=== PATIENT | female | born 1965 | race African-American/Black ===

== ENCOUNTER 2018-05-18 01:07 | Emergency (ER) | payer MEDICAID ==
[~2018-05-18] VITALS: Ht 157.5 cm; Wt 73.0 kg
[2018-05-18] MEDS ORDERED: TRAMADOL 50MG TABLET PO ONE (07:00)
[2018-05-18 11:54] VITALS: BP 133/74
== END 2018-05-18 13:50 | disposition home or self-care (01) ==
LOC: ER 01:07
DX: H10.9 Unspecified conjunctivitis (principal); M79.661 Pain in right lower leg; F43.10 Post-traumatic stress disorder, unspecified; F17.200 Nicotine dependence, unspecified, uncomplicated; W01.0XXD Fall on same level from slipping, tripping and stumbling without subsequent striking against object, subsequent encounter; Z88.6 Allergy status to analgesic agent
CPT/HCPCS: 73590; 93970; 99283

== ENCOUNTER 2019-12-05 22:02 | Emergency (ER) | payer MEDICAID ==
[~2019-12-05] VITALS: Ht 170.2 cm; Wt 72.0 kg
[2019-12-06] MEDS ORDERED: ACETAMINOPHEN 325MG TABLET PO ONE ×2 (01:15→14:00)
[2019-12-06 02:13] LABS: CLARITY URINE CLEAR (CLEAR); COLOR URINE YELLOW (YELLOW); KETONES URINE NEGATIVE (NEGATIVE); LEUKOCYTE ESTERASE URINE TRACE (NEGATIVE); NITRITE URINE NEGATIVE (NEGATIVE); OCCULT BLOOD URINE 1+ (NEGATIVE); PH URINE 6.5 (4.5-8.0); PROTEIN URINE NEGATIVE (NEGATIVE)
[2019-12-06] MEDS ORDERED: HYDROCODONE/ACETAMINOPHEN 5/325MG TABLET PO ONE (02:15)
[2019-12-06 02:22] LABS: *AMPHETAMINES SCREEN URINE NEGATIVE (NEGATIVE); *BARBITURATES SCREEN URINE NEGATIVE (NEGATIVE); *BENZODIAZEPINES SCREEN URINE NEGATIVE (NEGATIVE)
[2019-12-06 02:23] LABS: *COCAINE SCREEN URINE PRESUMTIVE POSITIVE (NEGATIVE); CANNABINOID URINE SCREEN PRESUMTIVE POSITIVE (NEGATIVE); METHADONE URINE SCREEN NEGATIVE (NEGATIVE); OPIATES URINE SCREEN NEGATIVE (NEGATIVE); PHENCYCLIDINE URINE SCREEN PRESUMTIVE POSITIVE (NEGATIVE)
[2019-12-06 02:56] LABS: BASOPHILS % 0.9 % (0.0-2.0); EOSINOPHILS % 3.2 % (0.0-5.0); HEMATOCRIT. 38.3 % (36.0-48.0); MEAN CORPUSCULAR HEMOGLOBIN 32.5 pg (28.0-32.0); MEAN PLATELET VOLUME 8.1 fl (7.4-10.4); MONOCYTES % 9.4 % (2.0-8.0); NEUTROPHILS % 53.5 % (40.0-76.0); PLATELET 274 x1000/uL (130-400); RED BLOOD CELL COUNT 3.99 mill/uL (4.2-5.4); RED CELL DISTRIBUTION WIDTH 13.3 % (11.6-14.6)
[2019-12-06 03:00] LABS: CHLORIDE 113 mEq/L (98-107)
[2019-12-06 03:05] LABS: ETHANOL BLOOD < 10 mg/dL
[2019-12-06] MEDS ORDERED: NITROFURANTOIN 100MG M/M CAPSULE PO SCH (09:00)
[2019-12-06] MEDS: ACETAMINOPHEN 325MG TABLET PO ONE ×2 (10:11→14:00)
[2019-12-06 18:37] VITALS: BP 126/68
== END 2019-12-06 18:40 | disposition home or self-care (01) ==
LOC: ER 22:02
DX: R45.851 Suicidal ideations (principal); S90.01XA Contusion of right ankle, initial encounter; N39.0 Urinary tract infection, site not specified; F20.9 Schizophrenia, unspecified; F32.9 Major depressive disorder, single episode, unspecified; F43.10 Post-traumatic stress disorder, unspecified; W01.0XXA Fall on same level from slipping, tripping and stumbling without subsequent striking against object, initial encounter; Y93.9 Activity, unspecified; Y92.9 Unspecified place or not applicable; Z88.6 Allergy status to analgesic agent
CPT/HCPCS: 36415; 73590; 73610; 80053; 80305; 80307; 80320; 80329; 81003; 85025; 93005; 99285; G0480

== ENCOUNTER 2024-01-18 20:49 | Emergency (ER) | payer MEDICAID ==
[~2024-01-18] VITALS: Ht 172.7 cm; Wt 62.0 kg
[2024-01-18 20:56] VITALS: TEMP 99; O2SAT 95
[2024-01-18] MEDS: ACETAMINOPHEN 1000MG/100ML 100 ML IV ONE (23:00)
[2024-01-18 23:20] LABS: BASOPHILS % 0.8 % (0.0-2.0); EOSINOPHILS % 1.8 % (0.0-5.0); HEMATOCRIT. 37.8 % (36.0-48.0); HEMOGLOBIN. 12.3 g/dL (12.0-16.0); LYMPHOCYTES % 33.5 % (20.0-50.0); MEAN CORPUSCULAR HEMOGLOBIN 31.3 pg (28.0-32.0); MEAN CORPUSCULAR HGB CONC 32.5 g/dL (31.0-37.0); MEAN CORPUSCULAR VOLUME 96.3 fL (81.0-99.0); MEAN PLATELET VOLUME 8.7 fl (7.4-10.4); MONOCYTES % 7.8 % (2.0-8.0); NEUTROPHILS % 56.1 % (40.0-76.0); PLATELET 238 x1000/uL (130-400); RED BLOOD CELL COUNT 3.93 mill/uL (4.2-5.4); RED CELL DISTRIBUTION WIDTH 13.6 % (11.6-14.6); WHITE BLOOD COUNT 11.3 x1000/uL (4.5-11.0)
[2024-01-18 23:23] LABS: CHLORIDE 114 mEq/L (98-107); POTASSIUM 3.3 mEq/L (3.5-5.1); SODIUM 144 mEq/L (136-145)
[2024-01-18 23:24] LABS: CALCIUM 10.9 mg/dL (8.7-10.4); CARBON DIOXIDE 26 mEq/L (21-32)
[2024-01-18 23:29] LABS: CREATININE 0.8 mg/dL (0.6-1.0); GLUCOSE 105 mg/dL (70-105); UREA NITROGEN BLOOD 14 mg/dL (9-23)
[2024-01-18 23:31] LABS: ALANINE AMINOTRANSFERASE 8 IU/L (10-49); ALBUMIN 3.7 g/dL (3.2-4.8); ASPARTATE AMINOTRANSFERASE 16 IU/L (<34); BILIRUBIN TOTAL 0.2 mg/dL (0.1-1.0); PROTEIN TOTAL 6.4 g/dL (6.0-8.3)
[2024-01-18 23:32] LABS: INR 0.9; PROTHROMBIN TIME 10.3 sec (9.6-11.0)
[2024-01-18 23:44] LABS: BILIRUBIN DIRECT < 0.1 mg/dL (<=3.0); ETHANOL BLOOD < 10 mg/dL (<10)
[2024-01-19 02:18] LABS: CLARITY URINE CLOUDY (CLEAR); COLOR URINE YELLOW (YELLOW); GLUCOSE URINE NEGATIVE (NEGATIVE); KETONES URINE NEGATIVE (NEGATIVE); LEUKOCYTE ESTERASE URINE NEGATIVE (NEGATIVE); NITRITE URINE NEGATIVE (NEGATIVE); OCCULT BLOOD URINE TRACE (NEGATIVE); PROTEIN URINE NEGATIVE (NEGATIVE); SPECIFIC GRAVITY URINE 1.013 (1.005-1.030)
[2024-01-19 02:33] LABS: *AMPHETAMINES SCREEN URINE NEGATIVE (NEGATIVE); *BARBITURATES SCREEN URINE NEGATIVE (NEGATIVE); *BENZODIAZEPINES SCREEN URINE NEGATIVE (NEGATIVE); *COCAINE SCREEN URINE PRESUMPTIVE POSITIVE (NEGATIVE); CANNABINOID URINE SCREEN NEGATIVE (NEGATIVE); ECSTASY MDMA SCREEN URINE NEGATIVE (NEGATIVE); METHADONE URINE SCREEN NEGATIVE (NEGATIVE); OPIATES URINE SCREEN NEGATIVE (NEGATIVE); PHENCYCLIDINE URINE SCREEN PRESUMTIVE POSITIVE (NEGATIVE)
[2024-01-19] MEDS ORDERED: ONDA4TAB50 MT (04:10)
[2024-01-19] MEDS ORDERED: ACET-2708 MT (04:10)
[2024-01-19] MEDS ORDERED: IMOD MT (04:10)
[2024-01-19 05:04] VITALS: BP 148/96; PULSE 88; RESP 18; O2SAT 100
[2024-01-19 05:19] LABS: SQUAMOUS EPITHELIAL CELL URINE FEW /lpf (RARE/1+)
[2024-01-19 05:20] LABS: RBC URINE 0-2 /hpf (0-2); WBC URINE 0-2 /hpf (0-2)
[2024-01-19 05:23] LABS: BACTERIA URINE NONE SEEN; CALCIUM OXALATE CRYSTALS URINE 1+ /lpf
[2024-01-19] MEDS ORDERED: IOHEXOL-300 100 ML BOTTLE ONE (12:23)
== END 2024-01-19 05:13 | disposition home or self-care (01) ==
LOC: ER 20:49
DX: R19.7 Diarrhea, unspecified (principal); I10 Essential (primary) hypertension; F12.10 Cannabis abuse, uncomplicated; J44.9 Chronic obstructive pulmonary disease, unspecified; Z88.6 Allergy status to analgesic agent; Z86.59 Personal history of other mental and behavioral disorders; Z98.890 Other specified postprocedural states; Z00.00 Encounter for general adult medical examination without abnormal findings
CPT/HCPCS: 80076; 80048; 80320; 83605; 83690; 85025; 85610; 36415; 96365; 99285; 80305; 81003; 74177; Q9967; G0480; J0131

== ENCOUNTER 2025-02-03 18:01 | Inpatient (IN) | payer MEDICAID ==
[~2025-02-03] VITALS: Ht 157.5 cm; Wt 71.2 kg
[~2025-02-03 18:01] MED LIST: ACET-2708 MT; IMOD MT; ONDA4TAB50 MT
[2025-02-03] MEDS: ONDANSETRON HCL 4MG/2ML INJ IV ONE (18:58)
[2025-02-03] MEDS: MORPHINE SULFATE 4 MG/ML INJ (FOR IV/IM USE) IV ONE ×2 (18:59→23:40)
[2025-02-03] MEDS: SODIUM CHLORIDE 0.9% 1,000 ML IV ONE (18:59)
[2025-02-03 20:08] LABS: BASOPHILS % 0.7 % (0.0-2.0); EOSINOPHILS % 2.4 % (0.0-5.0); HEMATOCRIT. 35.8 % (36.0-48.0); HEMOGLOBIN. 11.6 g/dL (12.0-16.0); LYMPHOCYTES % 32.7 % (20.0-50.0); MEAN PLATELET VOLUME 9.1 fl (7.4-10.4); MONOCYTES % 8.2 % (2.0-8.0); NEUTROPHILS % 56.0 % (40.0-76.0); PLATELET 240 x1000/uL (130-400); RED BLOOD CELL COUNT 3.77 mill/uL (4.2-5.4); RED CELL DISTRIBUTION WIDTH 13.9 % (11.6-14.6)
[2025-02-03 20:25] LABS: CREATININE 1.1 mg/dL (0.6-1.0); ETHANOL BLOOD < 10 mg/dL (<10); UREA NITROGEN BLOOD 16 mg/dL (9-23)
[2025-02-03 20:26] LABS: PROTEIN TOTAL 6.5 g/dL (6.0-8.3)
[2025-02-03 20:27] LABS: ASPARTATE AMINOTRANSFERASE 16 IU/L (<34); BILIRUBIN DIRECT < 0.1 mg/dL (<=3.0); BILIRUBIN TOTAL 0.2 mg/dL (0.1-1.0)
[2025-02-03] MEDS ORDERED: MAGNESIUM 1 G PREMIX 100 ML IV ONE (21:15)
[2025-02-03] MEDS: FAMOTIDINE 20MG TABLET PO ONE (23:05)
[2025-02-03] MEDS: MAGNESIUM 1 G PREMIX 100 ML IV NR (23:06)
[2025-02-03] MEDS: MAGNESIUM/ALUMINUM HYDROXIDE/SIMETHICONE 30ML UDC PO ONE (23:06)
[2025-02-04 06:25] LABS: INFLUENZA TYPE A Presumptive Negative (Pres. Neg.); INFLUENZA TYPE B Presumptive Negative (Pres. Neg.)
[2025-02-04 06:26] LABS: RESPIRATORY SYNCYTIAL VIRUS Not Detected (Not Detectd)
[2025-02-04 08:00] VITALS: BP 122/86; PULSE 78; RESP 18; TEMP 36.5; TEMP 36.5292; O2SAT 99
[2025-02-04] MEDS: HYDROCODONE/ACETAMINOPHEN 5/325MG TABLET PO PRN (09:36)
[2025-02-04] MEDS: PANTOPRAZOLE 40MG DR TABLET PO SCH (09:36)
[2025-02-04] MEDS: ONDANSETRON HCL 4MG/2ML INJ IV PRN (09:36)
[2025-02-04 12:15] VITALS: BP 143/90; PULSE 84; RESP 18; TEMP 36.8; O2SAT 98
[2025-02-04 16:00] VITALS: BP 99/64; PULSE 76; RESP 18; TEMP 36.3; O2SAT 98
[2025-02-04 18:45] LABS: CLARITY URINE CLEAR (CLEAR); COLOR URINE YELLOW (YELLOW); GLUCOSE URINE NEGATIVE (NEGATIVE); KETONES URINE NEGATIVE (NEGATIVE); LEUKOCYTE ESTERASE URINE NEGATIVE (NEGATIVE); NITRITE URINE NEGATIVE (NEGATIVE); OCCULT BLOOD URINE TRACE (NEGATIVE); PH URINE 6.0 (4.5-8.0); PROTEIN URINE NEGATIVE (NEGATIVE); SPECIFIC GRAVITY URINE 1.010 (1.005-1.030); UROBILINOGEN URINE 0.2 E.U./dL (0.2-1.0)
[2025-02-04 18:55] LABS: *AMPHETAMINES SCREEN URINE NEGATIVE (NEGATIVE)
[2025-02-04 18:56] LABS: *BARBITURATES SCREEN URINE NEGATIVE (NEGATIVE); *BENZODIAZEPINES SCREEN URINE NEGATIVE (NEGATIVE); *COCAINE SCREEN URINE NEGATIVE (NEGATIVE); CANNABINOID URINE SCREEN NEGATIVE (NEGATIVE); ECSTASY MDMA SCREEN URINE NEGATIVE (NEGATIVE); METHADONE URINE SCREEN NEGATIVE (NEGATIVE); OPIATES URINE SCREEN PRESUMPTIVE POSITIVE (NEGATIVE); PHENCYCLIDINE URINE SCREEN PRESUMTIVE POSITIVE (NEGATIVE)
[2025-02-04 19:36] LABS: BACTERIA URINE TRACE; RBC URINE NONE SEEN /hpf (0-2); SQUAMOUS EPITHELIAL CELL URINE FEW /lpf (RARE/1+); WBC URINE 0-2 /hpf (0-2)
[2025-02-04 20:00] VITALS: BP 130/80; PULSE 94; RESP 18; TEMP 36.6; O2SAT 97
[2025-02-04 21:20] VITALS: PULSE 72; RESP 17; O2SAT 97
[2025-02-04] MEDS: IPRATROPIUM/ALBUTEROL 0.5-3(2.5)MG/3ML NEB HHN SCH (22:04)
[2025-02-05] VITALS (8 sets, daily range): BP systolic 96–133; BP diastolic 61–79; PULSE 74–102; RESP 16–20; TEMP 36.2–37.4; O2SAT 93–100
[2025-02-05] MEDS ORDERED: PANTOPRAZOLE 40MG DR TABLET PO SCH (06:30)
[2025-02-06] VITALS (7 sets, daily range): BP systolic 90–124; BP diastolic 48–76; PULSE 74–104; RESP 18–20; TEMP 36.3–38.3; O2SAT 96–100
[2025-02-06] MEDS ORDERED: NALOXONE HCL 0.4MG/ML VIAL IV PRN (03:45)
[2025-02-06] MEDS: OLANZAPINE 5MG TABLET PO SCH (15:54)
[2025-02-06] MEDS ORDERED: GABAPENTIN 100MG CAPSULE PO SCH (22:00)
[2025-02-06] MEDS: GABAPENTIN 100MG CAPSULE PO SCH (22:30)
[2025-02-07 07:03] VITALS: BP 116/77; PULSE 94; RESP 18; TEMP 35.6; O2SAT 98
[2025-02-07 09:32] VITALS: PULSE 88; RESP 20
[2025-02-07] MEDS: SERTRALINE HCL 25MG TABLET PO SCH (10:11)
[2025-02-07 12:00] VITALS: BP 98/56; PULSE 86; RESP 18; TEMP 36.4; O2SAT 98
[2025-02-07 16:00] VITALS: BP 103/74; PULSE 67; RESP 17; TEMP 36.5; O2SAT 96
[2025-02-07 20:00] VITALS: BP 109/44; PULSE 109; RESP 18; TEMP 36.7; O2SAT 97
[2025-02-08 08:00] VITALS: BP 101/66; PULSE 94; RESP 16; TEMP 36.6; O2SAT 97
[2025-02-08 08:10] VITALS: PULSE 77; RESP 18; O2SAT 94
[2025-02-08 12:00] VITALS: BP 104/68; PULSE 98; RESP 18; TEMP 36.2; O2SAT 97
[2025-02-08] MEDS ORDERED: PROT40 MT (14:58)
[2025-02-08 20:00] VITALS: BP 132/80; PULSE 85; RESP 18; TEMP 36.4; O2SAT 100
[2025-02-08 22:00] VITALS: PULSE 96; RESP 20; O2SAT 94
[2025-02-09] VITALS: RESP 17
[2025-02-09 04:00] VITALS: RESP 18
[2025-02-09 08:55] VITALS: PULSE 89; RESP 20; O2SAT 95
[2025-02-09] MEDS: SODIUM CHLORIDE 0.9% 500 ML IV ONE (11:00)
[2025-02-09] MEDS: TRAMADOL 50MG TABLET PO PRN (11:04)
[2025-02-09 12:00] VITALS: RESP 17
[2025-02-09 16:00] VITALS: BP 116/60; PULSE 93; RESP 16; TEMP 36.5
[2025-02-09 20:51] LABS: BASOPHILS % 0.5 % (0.0-2.0); EOSINOPHILS % 2.3 % (0.0-5.0); HEMATOCRIT. 33.9 % (36.0-48.0); HEMOGLOBIN. 11.0 g/dL (12.0-16.0); LYMPHOCYTES % 31.0 % (20.0-50.0); MEAN PLATELET VOLUME 9.3 fl (7.4-10.4); MONOCYTES % 12.8 % (2.0-8.0); NEUTROPHILS % 53.4 % (40.0-76.0); PLATELET 253 x1000/uL (130-400); RED BLOOD CELL COUNT 3.57 mill/uL (4.2-5.4); RED CELL DISTRIBUTION WIDTH 13.6 % (11.6-14.6)
[2025-02-09 21:04] LABS: CREATININE 1.1 mg/dL (0.6-1.0)
[2025-02-09 21:05] LABS: PROTEIN TOTAL 6.2 g/dL (6.0-8.3); UREA NITROGEN BLOOD 19 mg/dL (9-23)
[2025-02-09 21:06] LABS: ASPARTATE AMINOTRANSFERASE 12 IU/L (<34)
[2025-02-09 21:07] LABS: BILIRUBIN TOTAL 0.2 mg/dL (0.1-1.0)
[2025-02-09 21:45] LABS: HEPATITIS A AB IGM NEGATIVE (Negative)
[2025-02-09 21:46] LABS: HEPATITIS B CORE AB IGM NEGATIVE (Negative)
[2025-02-09 21:47] LABS: HEPATITIS C AB NON REACTIVE (Neg) (Negative)
[2025-02-10] VITALS: BP 116/70; PULSE 90; RESP 18; TEMP 36.6; O2SAT 96
[2025-02-10 04:00] VITALS: BP 110/67; PULSE 86; RESP 18; TEMP 36.4; O2SAT 97
[2025-02-10] MEDS: SODIUM CHLORIDE 0.9% 1,000 ML IV SCH (06:36)
[2025-02-10 08:00] VITALS: BP 118/61; PULSE 79; RESP 16; TEMP 36.7; O2SAT 97
[2025-02-10 12:00] VITALS: BP 109/68; PULSE 82; RESP 18; TEMP 36.6; O2SAT 98
[2025-02-10] MEDS: CINACALCET HCL 30MG TABLET PO SCH (14:15)
[2025-02-10] MEDS: FUROSEMIDE 40MG/4ML VIAL IVP SCH (14:15)
[2025-02-10 16:00] VITALS: BP 109/68; PULSE 82; RESP 18; TEMP 36.6; O2SAT 98
[2025-02-10 20:00] VITALS: BP 91/57; PULSE 100; RESP 20; TEMP 36.5; O2SAT 96
[2025-02-11] VITALS: BP 108/67; PULSE 99; RESP 20; TEMP 36.6; O2SAT 95
[2025-02-11 04:00] VITALS: BP 122/81; PULSE 68; RESP 20; TEMP 36.2; O2SAT 94
[2025-02-11 08:00] VITALS: BP 122/84; PULSE 76; RESP 18; TEMP 36.2; O2SAT 96
[2025-02-11 08:40] LABS: CREATININE 1.0 mg/dL (0.6-1.0); UREA NITROGEN BLOOD 16 mg/dL (9-23)
[2025-02-11] MEDS: PAMIDRONATE DISODIUM 60 MG in SODIUM CHLORIDE 0.9% 1,000 ML IV ONE (13:13)
[2025-02-11 20:00] VITALS: BP 120/82; PULSE 85; RESP 20; TEMP 37.1; O2SAT 99
[2025-02-12 07:04] LABS: HEMATOCRIT. 35.6 % (36.0-48.0); HEMOGLOBIN. 11.7 g/dL (12.0-16.0); MEAN PLATELET VOLUME 9.1 fl (7.4-10.4); PLATELET 253 x1000/uL (130-400); RED BLOOD CELL COUNT 3.82 mill/uL (4.2-5.4); RED CELL DISTRIBUTION WIDTH 13.4 % (11.6-14.6)
[2025-02-12 07:07] LABS: CREATININE 1.0 mg/dL (0.6-1.0)
[2025-02-12 07:08] LABS: UREA NITROGEN BLOOD 15 mg/dL (9-23)
[2025-02-12 08:00] VITALS: BP 104/72; PULSE 74; RESP 19; TEMP 36.4; O2SAT 96
[2025-02-12 12:00] VITALS: BP 166/55; PULSE 112; RESP 18; TEMP 36.4; O2SAT 96
[2025-02-12 15:33] VITALS: BP 99/62; PULSE 113; RESP 20; TEMP 36.5; O2SAT 97
[2025-02-12 20:00] VITALS: BP 125/81; PULSE 111; RESP 18; TEMP 36.6; O2SAT 100
[2025-02-12 20:31] LABS: EOSINOPHILS % MANUAL 1.0 % (0.0-5.0); LYMPHOCYTES % MANUAL 1.0 % (20.0-60.0); MONOCYTES % MANUAL 6.0 % (2.0-8.0); NEUTROPHILS % MANUAL 92.0 % (45.0-75.0); PLATELET ESTIMATE NORMAL
[2025-02-12] MEDS: OLANZAPINE 5MG TABLET PO SCH (21:33)
[2025-02-13] VITALS: BP 108/68; PULSE 114; RESP 20; TEMP 37.2; O2SAT 96
[2025-02-13 04:00] VITALS: BP 99/69; PULSE 86; RESP 19; TEMP 36.7; O2SAT 97
[2025-02-13 08:00] VITALS: BP 103/64; PULSE 93; RESP 18; TEMP 36.9; O2SAT 99
[2025-02-13 12:00] VITALS: BP 104/52; PULSE 89; RESP 18; TEMP 37; O2SAT 95
[2025-02-13 16:00] VITALS: BP 89/54; PULSE 103; RESP 19; TEMP 38.1; O2SAT 98
[2025-02-13 17:57] LABS: BASOPHILS % 0.8 % (0.0-2.0); EOSINOPHILS % 0.8 % (0.0-5.0); HEMATOCRIT. 38.1 % (36.0-48.0); HEMOGLOBIN. 12.2 g/dL (12.0-16.0); LYMPHOCYTES % 16.2 % (20.0-50.0); MEAN PLATELET VOLUME 8.6 fl (7.4-10.4); MONOCYTES % 5.7 % (2.0-8.0); NEUTROPHILS % 76.5 % (40.0-76.0); PLATELET 241 x1000/uL (130-400); RED BLOOD CELL COUNT 3.95 mill/uL (4.2-5.4); RED CELL DISTRIBUTION WIDTH 14.0 % (11.6-14.6)
[2025-02-13 18:09] LABS: CREATININE 1.2 mg/dL (0.6-1.0)
[2025-02-13 18:10] LABS: UREA NITROGEN BLOOD 13.0 mg/dL (9-23)
[2025-02-13] MEDS: CEFTRIAXONE 1GM/50ML 50 ML IV SCH (18:24)
[2025-02-13 20:00] VITALS: BP 90/47; PULSE 120; RESP 20; TEMP 36.8; O2SAT 95
[2025-02-14] VITALS: BP 118/80; PULSE 110; RESP 18; TEMP 36.6; O2SAT 98
[2025-02-14 04:00] VITALS: BP 107/54; PULSE 96; RESP 18; TEMP 36.6; O2SAT 97
[2025-02-14 08:00] VITALS: BP 102/58; PULSE 91; RESP 18; TEMP 36.5; O2SAT 96
[2025-02-14 09:18] LABS: CLARITY URINE CLEAR (CLEAR); COLOR URINE YELLOW (YELLOW); GLUCOSE URINE NEGATIVE (NEGATIVE); KETONES URINE NEGATIVE (NEGATIVE); LEUKOCYTE ESTERASE URINE NEGATIVE (NEGATIVE); NITRITE URINE NEGATIVE (NEGATIVE); OCCULT BLOOD URINE NEGATIVE (NEGATIVE); PH URINE 7.5 (4.5-8.0); PROTEIN URINE NEGATIVE (NEGATIVE); SPECIFIC GRAVITY URINE 1.012 (1.005-1.030); UROBILINOGEN URINE 0.2 E.U./dL (0.2-1.0)
[2025-02-14 11:46] VITALS: BP 95/63; PULSE 95; RESP 18; TEMP 38.2; O2SAT 97
[2025-02-14 11:59] LABS: BASOPHILS % 0.9 % (0.0-2.0); EOSINOPHILS % 0.3 % (0.0-5.0); HEMATOCRIT. 35.2 % (36.0-48.0); HEMOGLOBIN. 11.4 g/dL (12.0-16.0); LYMPHOCYTES % 21.1 % (20.0-50.0); MEAN PLATELET VOLUME 9.5 fl (7.4-10.4); MONOCYTES % 6.7 % (2.0-8.0); NEUTROPHILS % 71.0 % (40.0-76.0); PLATELET 226 x1000/uL (130-400); RED BLOOD CELL COUNT 3.72 mill/uL (4.2-5.4); RED CELL DISTRIBUTION WIDTH 13.4 % (11.6-14.6)
[2025-02-14 12:17] LABS: CREATININE 1.1 mg/dL (0.6-1.0); UREA NITROGEN BLOOD 11 mg/dL (9-23)
[2025-02-14] MEDS: HYDROCODONE/ACETAMINOPHEN 5/325MG TABLET PO PRN (13:24)
[2025-02-14 16:00] VITALS: BP 94/60; PULSE 81; RESP 16; TEMP 36.8; O2SAT 97
[2025-02-14 20:00] VITALS: BP 115/67; PULSE 104; RESP 19; TEMP 36.8; O2SAT 96
[2025-02-15] VITALS: BP 114/72; PULSE 99; RESP 19; TEMP 37.3; O2SAT 96
[2025-02-15 04:00] VITALS: BP 104/68; PULSE 77; RESP 20; TEMP 36.5; O2SAT 95
[2025-02-15 08:00] VITALS: BP 112/72; PULSE 95; RESP 18; TEMP 37.9; O2SAT 100
[2025-02-15 09:16] LABS: INFLUENZA TYPE A Presumptive Negative (Pres. Neg.)
[2025-02-15 09:17] LABS: INFLUENZA TYPE B Presumptive Negative (Pres. Neg.); RESPIRATORY SYNCYTIAL VIRUS Not Detected (Not Detectd)
[2025-02-15 12:00] VITALS: BP 101/57; PULSE 88; RESP 19; TEMP 37.1; O2SAT 97
[2025-02-15] MEDS ORDERED: ACETAMINOPHEN 325MG TABLET PO PRN (12:00)
[2025-02-15 20:00] VITALS: BP 119/79; PULSE 95; RESP 20; TEMP 36.6; O2SAT 96
[2025-02-16] VITALS: BP 97/53; PULSE 91; RESP 18; TEMP 36.7; O2SAT 97
[2025-02-16] MEDS: GUAIFENESIN 200MG/10ML SUGAR FREE UDC PO PRN (03:05)
[2025-02-16 04:00] VITALS: BP 107/65; PULSE 85; RESP 18; TEMP 36.7; O2SAT 98
[2025-02-16 08:00] VITALS: BP 114/63; PULSE 93; RESP 18; TEMP 36.6; O2SAT 99
[2025-02-16] MEDS: SERTRALINE HCL 50MG TABLET PO SCH (09:04)
[2025-02-16 12:00] VITALS: BP 94/58; PULSE 78; RESP 19; TEMP 36.7; O2SAT 94
[2025-02-16 12:35] VITALS: BP 94/58; PULSE 78; RESP 19; TEMP 98.1
== END 2025-02-16 14:18 | disposition home or self-care (01) | DRG 249 ==
LOC: ER 18:01 → EDBEDREQTM 23:06 → EDBEDREQ 23:06 → ENRESERV 02-04 04:48 → 4WST 02-04 05:38
PROVIDERS: ADMIT Internal Medicine; ATTEND Internal Medicine
DX: K52.9 Noninfective gastroenteritis and colitis, unspecified (principal); R45.850 Homicidal ideations; Z59.01 Sheltered homelessness; K75.9 Inflammatory liver disease, unspecified; N17.9 Acute kidney failure, unspecified; D64.9 Anemia, unspecified; E11.9 Type 2 diabetes mellitus without complications; F20.9 Schizophrenia, unspecified; J44.9 Chronic obstructive pulmonary disease, unspecified; I10 Essential (primary) hypertension; R45.851 Suicidal ideations; E21.0 Primary hyperparathyroidism; K21.9 Gastro-esophageal reflux disease without esophagitis; K57.30 Diverticulosis of large intestine without perforation or abscess without bleeding; Z20.822 Contact with and (suspected) exposure to COVID-19; F14.90 Cocaine use, unspecified, uncomplicated; K76.9 Liver disease, unspecified; F16.90 Hallucinogen use, unspecified, uncomplicated; F17.210 Nicotine dependence, cigarettes, uncomplicated; Z88.6 Allergy status to analgesic agent; Z79.899 Other long term (current) drug therapy
CPT/HCPCS: 36415; 71045; 74176; 76700; 80048; 80053; 80076; 80305; 80320; 81003; 82310; 82330; 83036; 83735; 83970; 84145; 85025; 86705; 86709; 87340; 87420; 87426; 87804; 93970; 94070; 94640; 94664; 94760; 97116; 97162; 98960; 99285; A4606; A4615; J0696; J1938; J2270; J2405; J2430; J3475; J7030; J7040; G0480